=== PATIENT | female | born 1980 | race Caucasian/White ===

== ENCOUNTER 2017-02-20 06:48 | Emergency (ER) | payer OTHER ==
[~2017-02-20] VITALS: Ht 165.1 cm; Wt 65.8 kg
[2017-02-20] MEDS ORDERED: DIAZ5TAB PO (07:02)
[2017-02-20] MEDS ORDERED: METO25TA6 PO (07:02)
[2017-02-20] MEDS ORDERED: KETOROLAC TROMETHAMINE 15 MG INJ IV ONE (07:15)
[2017-02-20] MEDS ORDERED: IV NORMAL SALINE 1000 ML BAG IV ONE (07:15)
[2017-02-20 07:35] LABS: BASOPHILS # (AUTO) 0.1 K/uL (0.0-8.0); BASOPHILS % (AUTO) 0.4 % (0.0-2.0); EOSINOPHILS # (AUTO) 0.1 K/uL (0.0-0.7); EOSINOPHILS % (AUTO) 0.7 % (0.0-7.0); HEMOGLOBIN 11.7 g/dL (10.9-14.3); LYMPHOCYTES # (AUTO) 1.3 K/uL (20.0-40.0); MEAN CORPUSCULAR HEMOGLOBIN 27.1 uug (24.7-32.8); MEAN CORPUSCULAR HGB CONC 34 g/dL (32.3-35.6); MEAN CORPUSCULAR VOLUME 80.9 fL (75.5-95.3); MONOCYTES % (AUTO) 6.4 % (0.0-11.0); NEUTROPHILS # (AUTO) 13.2 K/uL (1.8-8.9); NEUTROPHILS % (AUTO) 84.5 % (38.5-71.5); PLATELET COUNT (AUTO) 299 K/uL (179-408); RED BLOOD CELL COUNT(AUTO) 4.32 MIL/uL (3.63-4.92); WHITE BLOOD COUNT (AUTO) 15.6 K/uL (3.8-11.8)
[2017-02-20] MEDS ORDERED: KETOROLAC TROMETHAMINE 15 MG INJ ONE (07:41)
[2017-02-20 07:45] LABS: CREATININE 0.8 mg/dL (0.6-1.3); POTASSIUM 3.5 mmol/L (3.5-5.1)
[2017-02-20 07:59] LABS: BILIRUBIN,DIRECT 0.1 mg/dL (0.0-0.2); BILIRUBIN,TOTAL 0.3 mg/dL (0.2-1.0); TOTAL PROTEIN, SERUM 7.1 g/dL (6.4-8.2)
--- NOTE | 2017-02-20 08:41 | NUR ---
Pt resting in bed, denies pain, awiting for u/s.
--- NOTE | 2017-02-20 09:17 | NUR ---
IV removed. Catheter intact and site benign. Pressure and 4x4 gauze applied to site. No bleeding noted.
[2017-02-20 09:19] VITALS: BP 113/80
--- NOTE | 2017-02-20 09:19 | NUR ---
Patient discharged to home in stable conditon. Written and verbal after care instructions given. Patient verbalizes understanding of instructions.
== END 2017-02-20 09:30 | disposition home or self-care (01) ==
LOC: ER 06:59
DX: N93.9 Abnormal uterine and vaginal bleeding, unspecified (principal)
CPT/HCPCS: 36415; 76856; 80048; 80076; 84702; 85025; 85730; 86850; 86900; 86901; 96361; 96374; 99285; A4663; J1885; J7030

== ENCOUNTER 2017-07-28 16:08 | Emergency (ER) | payer BC, OTHER ==
[~2017-07-28] VITALS: Ht 165.1 cm; Wt 68.0 kg
[~2017-07-28 16:08] MED LIST: DIAZ5TAB PO; METO25TA6 PO
[2017-07-28] MEDS ORDERED: CLON0.5T PO (16:21)
[2017-07-28] MEDS ORDERED: FLUCONAZOLE 100 MG TABLET PO ONE (16:30)
[2017-07-28] MEDS ORDERED: FLUCONAZOLE 100 MG TABLET ONE (16:31)
--- NOTE | 2017-07-28 16:34 | NUR ---
PATIENT WAS SEEN BY DR BARTLETT. MEDICATON GIVEN ORDERED. DC, RX AND FOLLOW UP INSTRUCTIONS GIVEN AND EXPLAINED TO PATIENT WHO STATES SHE UNDERSTANDS ALL INSTRUCTIONS.
== END 2017-07-28 16:36 | disposition home or self-care (01) ==
LOC: ER 16:09
DX: H60.11 Cellulitis of right external ear (principal); Z79.899 Other long term (current) drug therapy
CPT/HCPCS: A4663

== ENCOUNTER 2017-10-13 12:18 | Emergency (ER) | payer BC ==
[~2017-10-13] VITALS: Ht 165.1 cm; Wt 65.8 kg
[~2017-10-13 12:18] MED LIST changes: +CLON0.5T PO; -DIAZ5TAB PO
[2017-10-13] MEDS ORDERED: HYDROCODONE/APAP 10-325 MG TABLET PO ONE (12:45)
[2017-10-13] MEDS ORDERED: HYDROCODONE/APAP 10-325 MG TABLET ONE (13:01)
--- NOTE | 2017-10-13 13:20 | NUR ---
Patient discharged to home in stable conditon. Written and verbal after care instructions given. Patient verbalizes understanding of instructions.
[2017-10-13 13:21] VITALS: BP 151/86
== END 2017-10-13 13:23 | disposition home or self-care (01) ==
LOC: ER 12:20
DX: R07.89 Other chest pain (principal); I10 Essential (primary) hypertension; Z79.899 Other long term (current) drug therapy
CPT/HCPCS: 71045; 99283; A4663